=== PATIENT | female | born 1995 | race Caucasian/White ===

== ENCOUNTER 2017-12-09 08:41 | Emergency (ER) | payer SELFPAY ==
[2017-12-09] MEDS ORDERED: Ibuprofen TAB* 600 MG PO ONE (09:10)
--- NOTE | 2017-12-09 09:34 | RAD ---
HISTORY: Right foot pain, dorsal medial COMPARISONS: None VIEWS: 3, Frontal, lateral, and oblique views of the right foot FINDINGS: BONE DENSITY: Normal. BONES: There is no displaced fracture. JOINTS: There is no arthropathy. ALIGNMENT: There is no dislocation. SOFT TISSUES: Unremarkable. OTHER FINDINGS: None. IMPRESSION: NO ACUTE OSSEOUS INJURY. IF SYMPTOMS PERSIST, RECOMMEND REPEAT IMAGING.
[2017-12-09 10:42] VITALS: BP 115/66
--- NOTE | 2017-12-09 11:48 | ED ---
Omer Prescott Stephanie, scribed for Alli Shah on 12/09/17 at 0915 . Lower Extremity - HPI Summary HPI Summary: The pt is a 22 y/o F presenting to the ED with c/o R foot/ankle pain that began at 08:00 today. Her pain is aggravated by walking. The pt states she was drinking ETOH last night and does not remember injuring her foot. - History of Current Complaint Chief Complaint: EDExtremityLower Stated Complaint: RT FOOT INJURY Time Seen by Provider: 12/09/17 09:02 Hx Obtained From: Patient Hx Last Menstrual Period: 03/05/16 Mechanism Of Injury: Unknown Onset of Pain: Hours - 1 Onset/Duration: Still Present - 1 Severity Currently: Moderate Pain Intensity: 6 Pain Scale Used: 0-10 Numeric Timing: Constant Location: Is Discrete @ - R foot/ankle Associated Signs And Symptoms: Negative: Fever Aggravating Factor(s): Ambulation Alleviating Factor(s): Rest Able to Bear Weight: No - Allergies/Home Medications Allergies/Adverse Reactions: Allergies Allergy/AdvReac Type Severity Reaction Status Date / Time No Known Allergies Allergy Verified 12/09/17 08:52 PMH/Surg Hx/FS Hx/Imm Hx Endocrine/Hematology History: Denies: Hx Diabetes, Hx Thyroid Disease Cardiovascular History: Denies: Hx Hypertension Respiratory History: Denies: Hx Asthma, Hx Chronic Obstructive Pulmonary Disease (COPD) GI History: Denies: Hx Ulcer Sensory History: Denies: Hx Legally Blind EENT History: Denies: Hx Deafness - Surgical History Surgery Procedure, Year, and Place: NONE Infectious Disease History: No Infectious Disease History: Reports: Traveled Outside the in Last 30 Days - [place] Denies: Hx Hepatitis, Hx Human Immunodeficiency Virus (HIV), History Other Infectious Disease - Family History Known Family History: Negative: Renal Disease Family History: positive family history CAD,HTN , DM - Social History Occupation: Student Lives: Dormitory/Roommates Alcohol Use: Weekly Hx Substance Use: Yes Substance Use Type: Reports: Marijuana Hx Tobacco Use: No Smoking Status (MU): Never Smoked Tobacco Have You Smoked in the Last Year: No Review of Systems Negative: Fever Positive: Other - R foot/R ankle pain All Other Systems Reviewed And Are Negative: Yes Physical Exam - Summary Physical Exam Summary: Appearance: Well appearing, no pain distress Skin: warm, dry, reflects adequate perfusion Head/face: normal Eyes: EOMI, CHANCE ENT: normal Neck: supple, non-tender Respiratory: CTA, breath sounds present Cardiovascular: RRR, pulses symmetrical Abdomen: non-tender, soft Bowel: present Musculoskeletal: tenderness over R foot, no neurovascular deficit, mild restriction of movement of right foot and ankle t Neuro: normal, sensory motor intact, A&Ox3 Triage Information Reviewed: Yes Vital Signs On Initial Exam: Initial Vitals Temp Pulse Resp BP Pulse Ox 97.4 F 66 14 109/60 97 12/09/17 08:52 12/09/17 08:52 12/09/17 08:52 12/09/17 08:52 12/09/17 08:52 Vital Signs Reviewed: Yes Diagnostics - Vital Signs Vital Signs Temp Pulse Resp BP Pulse Ox 12/09/17 08:52 97.4 F 66 14 109/60 97 - Laboratory Lab Statement: Any lab studies that have been ordered have been reviewed, and results considered in the medical decision making process. - Radiology Foot XRay Xray Interpretation: No Acute Changes Radiology Interpretation Completed By: Radiologist - NO ACUTE OSSEOUS INJURY. IF SYMPTOMS PERSIST, RECOMMEND REPEAT IMAGING. ED physician has reviewed this report. Re-Evaluation - Re-Evaluation First Eval Re-Evaluation Time: 09:49 Change: Unchanged - ED physician discussed normal xray results with the pt and discussed plan of discharge. The pt agrees with the plan of discharge. Lower Extremity Course/Dx - Course Course Of Treatment: The pt is a 22 y/o F presenting to the ED with c/o R foot/ ankle pain that began at 08:00 today. XRay of the foot reveals no acute changes. The pt will be discharged. - Diagnoses Differential Diagnosis/HQI/PQRI: Positive: Contusion, Fracture (Closed), Strain Provider Diagnoses: Right foot sprain Discharge - Sign-Out/Discharge Documenting (check all that apply): Discharge/Admit/Transfer - Discharge - Discharge Plan Condition: Stable Disposition: HOME Prescriptions: Ibuprofen TAB* [Motrin TAB* 600 MG] 600 mg PO Q8H PRN #20 tab MDD 3 PRN Reason: Pain Patient Education Materials: Foot Sprain (ED) Forms: *Work Release Referrals: Suha Rodarte MD [Medical Doctor] - 3 Days Additional Instructions: Return to the ED for new or worsening symptoms. - Billing Disposition and Condition Condition: STABLE Disposition: HOME The documentation as recorded by the Omer santillan Stephanie accurately reflects the service I personally performed and the decisions made by , Alli Shah.
== END 2017-12-09 10:37 | disposition home or self-care (01) ==
LOC: ED 08:41
DX: S93.601A Unspecified sprain of right foot, initial encounter (principal); M79.671 Pain in right foot; M25.571 Pain in right ankle and joints of right foot; X58.XXXA Exposure to other specified factors, initial encounter; Y92.9 Unspecified place or not applicable
CPT/HCPCS: 99282; A9270-GY

== ENCOUNTER 2018-06-19 11:35 | Day surgery (SDC) | payer OTHER ==
--- NOTE | 2018-06-14 16:45 | HP ---
PREOPERATIVE HISTORY AND PHYSICAL EXAM: DATE OF ADMISSION/SURGERY: 06/19/18 DATE OF OFFICE VISIT/ENCOUNTER: 06/14/18 ATTENDING SURGEON: Shama Steven MD * (DICTATED BY AKSHAT TURNER) PROCEDURE: Open reduction and internal fixation, right 5th metacarpal. CHIEF COMPLAINT: Right hand pain after injury. HISTORY OF PRESENT ILLNESS: This is a 22-year-old female, who sustained injury to her right hand on 06/09/18 when she punched a wall. She is a student at [employer]. At the time of injury, she was in [place] and was seen at a couple of different urgent care places and had some x-rays taken, which showed a fracture of the 5th metacarpal. She reports she had the fractured reduced and splinted. She has been using Lawnside for pain control. She denies any associated numbness or tingling. She has trouble moving her small finger. After review of updated x-rays and evaluation by Dr. Steven, it has been recommended that she undergo surgical intervention for best outcome and the patient has consented to proceed. PAST MEDICAL HISTORY: Unremarkable. PAST SURGICAL HISTORY: None. MEDICATIONS: None. ALLERGIES: No known drug allergies. FAMILY MEDICAL HISTORY: Noncontributory. SOCIAL HISTORY: The patient is a student at [employer]. She is a senior studying biostatistics. She denies tobacco use. She does smoke marijuana with some regularity and drinks alcohol on regular occasion. REVIEW OF SYSTEMS: Negative for general, cephalic, cardiovascular, respiratory , GI, , other musculoskeletal, integumentary, endocrine, neurologic, and hematologic symptoms. Infectious disease is negative for MRSA, hepatitis C, HIV. PHYSICAL EXAMINATION GENERAL: Well-developed, well-nourished 22-year-old female, in no acute distress. VITAL SIGNS: Height 5 feet 7 inches, weight 140 pounds. Pulse rate 47, blood pressure 130/68. HEENT: Normocephalic, atraumatic. Pupils are equal, round, and reactive to light and accommodation. Extraocular movements are intact. Throat is clear. NECK: Supple. No palpable lymph nodes. PULMONARY: Lungs are clear to auscultation bilaterally. No wheezes, rales, or rhonchi. CARDIOVASCULAR: Regular rate and rhythm. S1, S2. No murmurs, rubs, or gallops. No edema. ABDOMEN: Positive bowel sounds. Soft, nontender. NEUROLOGICAL: Alert and oriented x3. Cranial nerves II through XII are intact. Sensation is intact to light touch. MUSCULOSKELETAL: On exam of the patient's right hand, there is significant ecchymosis and swelling. She has very limited range of motion in the small finger, but can move the other fingers fairly well. Ring finger has moderate range of motion limitation. Neurovascular function is intact. Tenderness to palpation along the 5th metacarpal. IMAGING STUDIES: AP, lateral of the right hand shows significantly displaced fracture of the 5th metacarpal shaft. IMPRESSION: Right 5th metacarpal shaft fracture, which is displaced. PLAN: The patient is scheduled to undergo an open reduction and internal fixation, right 5th metacarpal, with Dr. Steven on 06/19/18. She will return to the office 10 days postop for followup and suture removal. A prescription for Lawnside was e-scribed to the patient's pharmacy for postoperative pain management. AKSHAT TURNER [id number]/[facility] #: [id number] JEANCARLOS
[~2018-06-19 11:35] MED LIST: Buffered Lidocaine 0.9% SYRIN* 5 ML/SYR SYRINGE INTRADERM ONE; Dexamethasone IV* 4 MG/ML 1 ML (4 MG) IV SLOW PU ONE; Dexamethasone IV* 4 MG/ML 1 ML (4 MG) ONE; Famotidine IV* 10 MG/ML 2 ML (20 mg) IV ONE; Famotidine IV* 10 MG/ML 2 ML (20 mg) ONE; Lidocaine 1% INJ* 10 MG/ML 30 ML SDV ONE
[2018-06-19] MEDS ORDERED: ceFAZolin 2 GM PREMIX in ORs 2 GM/50 ML BAG IVPB ONE (11:57)
[2018-06-19] MEDS ORDERED: Propofol* 10 MG/ML 20 ML BTL ONE (13:39)
[2018-06-19] MEDS ORDERED: Midazolam* 1 MG/ML 2 ML VIAL (2 MG) ONE (13:47)
[2018-06-19] MEDS ORDERED: fentaNYL* 50 MCG/ML 2 ML VIAL (100 MCG VIAL) ONE ×2 (13:47→14:47)
[2018-06-19] MEDS ORDERED: Bupivacaine 0.5% PF 10 ML VIAL INJ ONE (14:24)
[2018-06-19] MEDS ORDERED: EPHEDrine (Pressors)* 50 MG/ML VIAL ONE (14:56)
[2018-06-19] MEDS ORDERED: Ondansetron INJ* 2 MG/ML VIAL ONE (14:58)
[2018-06-19] MEDS ORDERED: HYDROcodone/ACETAMIN 5-325 MG* 1 TAB PO PRN (15:19)
[2018-06-19] MEDS ORDERED: oxyCODONE TAB* 5 MG TAB PO PRN (15:19)
[2018-06-19] MEDS ORDERED: fentaNYL* 50 MCG/ML 2 ML VIAL (100 MCG VIAL) IV PRN (15:19)
[2018-06-19] MEDS ORDERED: Ketorolac INJ* 30 MG/ML 1 ML VIAL IV PRN (15:19)
[2018-06-19] MEDS ORDERED: DiMENhydriNATE IV* 50 MG/ML VIAL IV PUSH PRN (15:19)
[2018-06-19] MEDS ORDERED: Naloxone* 0.4 MG/ML 1 ML VIAL IV PRN (15:19)
[2018-06-19] MEDS ORDERED: Ketorolac INJ* 30 MG/ML 1 ML VIAL ONE (15:30)
[2018-06-19] MEDS ORDERED: HYDROcodone/ACETAMIN 5-325 MG* 1 TAB ONE (15:56)
[2018-06-19 15:58] VITALS: BP 108/63
--- NOTE | 2018-06-20 08:21 | OP ---
DATE OF OPERATION: 06/19/18 [facility] DATE OF : [birth year] SURGEON: Shama Steven MD [employer] COORDINATOR: AKSHAT Buck ANESTHESIA: General. PRE-OP DIAGNOSIS: Fifth metacarpal fracture, right small finger. POST-OP DIAGNOSIS: Fifth metacarpal fracture, right small finger. OPERATIVE PROCEDURE: Open reduction internal fixation right fifth metacarpal fracture. INDICATIONS: Ludmila is a 22-year-old female, who fractured her fifth metacarpal when she punched a wall. She has a displaced fracture, presents for ORIF. ESTIMATED BLOOD LOSS: Zero. TOURNIQUET TIME: Zero. DESCRIPTION OF PROCEDURE: The patient was brought to the operating room, was given a general anesthetic and placed in the supine position on the operating table with a tourniquet around her right upper arm. This tourniquet was not used during the procedure. The skin of her right upper extremity was prepped and draped in the usual sterile fashion. The fracture was reduced and then with the MP joint flexed, a guidewire was passed through the metacarpal head down the center of the shaft of the metacarpal to the proximal aspect of the metacarpal. The position of the K- wire was checked on the C-arm in the AP and lateral views and found to be satisfactory. We measured for a 40 mm screw, overdrilled through the shaft and then placed the screw, which held the fracture in excellent position. The guidewire was removed. The wound was irrigated and the skin edges reapproximated with 4-0 nylon suture. The wound was dressed with Xeroform, 4x4, Webril, and an Sean wrap. The patient tolerated the procedure well and was brought to the recovery room in good condition. [id number]/[facility] #: [id number] MTDD
== END 2018-06-19 16:00 | disposition home or self-care (01) ==
LOC: OREAST 11:35
PROVIDERS: ATTEND Orthopaedic Surgery
DX: S62.326A Displaced fracture of shaft of fifth metacarpal bone, right hand, initial encounter for closed fracture (principal); W22.8XXA Striking against or struck by other objects, initial encounter; Y93.89 Activity, other specified; Y92.9 Unspecified place or not applicable
CPT/HCPCS: 76000; 81025; C1713; J0690; J1100; J1885; J2250; J2405; J2704; J3010